=== PATIENT | female | born 1995 | race Two or more races ===

== ENCOUNTER 2019-11-19 13:10 | Outpatient (CLI) | payer OTHER, SELFPAY ==
[2019-11-19 13:52] LABS: Basophils Percent Auto 0.2 % (0.2-1.2); Eosinophils Absolute Auto 0.1 K/mm3 (0-0.3); Eosinophils Percent Auto 1.1 % (0-4.4); Hematocrit 35.5 % (37.0-47.0); Hemoglobin 11.2 g/dL (12.0-15.0); Immature Granulocyte Absolute 0.05 K/mm3 (0.00-0.031); Immature Granulocyte Percent A 0.8 % (0-0.5); Lymphocytes Percent Auto 19.5 % (18.3-44.2); Mean Corpuscular HGB Conc 31.5 g/dl (32-36); Mean Corpuscular Hemoglobin 25.9 pg (26-34); Mean Corpuscular Volume 82.2 fl (80-100); Mean Platelet Volume 12.8 fl (7.4-10.4); Monocytes Absolute Auto 0.5 K/mm3 (0.1-0.6); Monocytes Percent Auto 7.6 % (2.6-8.5); Neutrophils Absolute Auto 4.4 K/mm3 (1.3-6.7); Neutrophils Percent Auto 70.8 % (45.5-73.1); Platelet Count Result 148 k/mm3 (150-375); Red Blood Count 4.32 M/mm3 (4.2-5.4); Red Cell Distribution Width 14.8 % (11.5-14.5); White Blood Count 6.2 K/mm3 (4.5-10.0)
[2019-11-19 14:45] LABS: HIV 1/2 Ab P24 Ag Result Negative (Negative)
[2019-11-20 07:30] LABS: Rapid Plasma Reagin Non-Reactive (NonReactive)
== END 2019-11-19 13:11 | disposition home or self-care (01) ==
PROVIDERS: PCP Obstetrics & Gynecology; Visit Provider Obstetrics & Gynecology
DX: Z34.90 Encounter for supervision of normal pregnancy, unspecified, unspecified trimester (principal)
CPT/HCPCS: 36415; 85025; 85055; 86592; 86703; G0432

== ENCOUNTER 2019-11-23 12:44 | Outpatient (CLI) | payer OTHER, SELFPAY ==
--- NOTE | ~2019-11-23 | US_ITS ---
EXAMINATION: US OB follow up DATE: 11/23/2019 13:32 INDICATION: Large for gestational dates. TECHNIQUE: Real-transabdominal obstetric ultrasound. FINDINGS: No prior studies for comparison. There is a single living fetus in vertex presentation. The placenta is anterior/fundal without place nta previa. cardiac activity and movement is noted with a heart rate of 147 beats per minute. T he amniotic fluid volume is subjectively normal. The following biometric data were obtained: BPD: 94mm corresponds to gestational age 38 weeks 3 days. Head circumference: 354mm corresponds to gestational age 41 weeks 3 days. Abdominal circumference: 360mm corresponds to gestational age 40 weeks 0 days. Femur length: 77mm corresponds to gestational age 39 weeks 1 days. Estimated weight: 3882grams +/- 582grams.] IMPRESSION: 1. Single living intrauterine in vertex presentation with an estimated gestational age of 39 weeks 5 days by current ultrasound. 2. Normal placenta. Reviewed, dictated and finalized at location A. IMPRESSION: 1. Single living intrauterine in vertex presentation with an estimat ed gestational age of 39 weeks 5 days by current ultrasound. 2. Normal placenta.
== END 2019-11-23 12:45 | disposition home or self-care (01) ==
LOC: ANHIMG 12:48
PROVIDERS: Visit Provider Obstetrics & Gynecology
DX: Z34.93 Encounter for supervision of normal pregnancy, unspecified, third trimester (principal); Z3A.39 39 weeks gestation of pregnancy
CPT/HCPCS: 76816

== ENCOUNTER 2019-11-26 11:32 | Outpatient (RCR) | payer OTHER, SELFPAY ==
--- NOTE | ~2019-11-26 | US_ITS ---
EXAMINATION: US OB BPP wo non-stress DATE: 11/26/2019 12:34 INDICATION: Decreased movements during third trimester of TECHNIQUE: Real-time pelvic ultrasound was performed. The interpreting radiologist was not present fo r the study. COMPARISON: None. FINDINGS: There is a single living fetus in vertex presentation. The placenta is anterior. heart rate is 173 beats per minute (bpm). Biophysical profile performed by the technologist: breathing (30 sec sustained breathing in 30 minutes): 2 out of 2 movement (3 gross body movements in 30 minutes): 2 out of 2 tone (one episode of wueltii-sabwvamtj-gppvurf limb movement): 2 out of 2 Amniotic fluid pocket (2 cm): 2 out of 2 Total score: 8 out of 8 IMPRESSION: 1. Single living fetus in vertex presentation with heart rate of 173 bpm which is tachycardic f or estimated gestational age. 2. Biophysical profile 8 out of 8. Reviewed, dictated and finalized at location A. IMPRESSION: 1. Single living fetus in vertex presentation with heart rate of 173 bpm which is tachycardic for estimated gestational age. 2. Biophysical profile 8 out of 8.
[2019-11-26 11:47] VITALS: BP 121/53; PULSE 87
[2019-11-26 12:39] VITALS: BP 121/53; PULSE 84
== END 2019-12-10 08:59 | disposition home or self-care (01) ==
LOC: ANHOBOP 11:32
PROVIDERS: Visit Provider Obstetrics & Gynecology
DX: O36.8130 Decreased fetal movements, third trimester, not applicable or unspecified (principal); Z3A.38 38 weeks gestation of pregnancy; Z23 Encounter for immunization
CPT/HCPCS: 59025; 76819; 90715; 96372

== ENCOUNTER 2019-11-27 16:05 | Outpatient (CLI) | payer OTHER, SELFPAY ==
[2019-11-27] MEDS: TETANUS,DIPHTHERIA,AC PERTUSSIS ADULT (0.5 ML) BOOSTRIX IM (16:37)
== END 2019-11-27 16:06 | disposition home or self-care (01) ==
LOC: ANHOBOP 16:13
PROVIDERS: Visit Provider Obstetrics & Gynecology
DX: Z23 Encounter for immunization (principal)
CPT/HCPCS: 90715

== ENCOUNTER 2019-12-03 11:45 | Outpatient (CLI) | payer OTHER, SELFPAY ==
--- NOTE | ~2019-12-03 | US_ITS ---
US OB limited w BPP DATE: 12/03/2019 13:44 INDICATION: Maternal hypertension TECHNIQUE: Real-time and color flow imaging and Doppler analysis COMPARISON: 11/26/2019 OBSTETRICAL EXAMINATION WITH BIOPHYSICAL PROFILE FINDINGS: Live laguerre intrauterine gestation, fetus in longitudinal lie, vertex presentation. Feta l heart rate of 132 bpm. Anterior placenta. Amniotic fluid index measures 9.15 cm, which is slightly above the 5th percentile is 7.2 cm. The 95th percentile FOSTER is 22.6 cm. BIOPHYSICAL PROFILE reported by senior health physics technician: breathin out of 2 movement: 2 out of 2 tone: 2 out of 2 Amniotic fluid pocket: 2 out of 2 Total score: 8 out of 8 IMPRESSION: Normal biophysical profile score of 8 out of 8 Reviewed, dictated and finalized at Location A. Reviewed, dictated and finalized at location A.
[2019-12-03 11:55] VITALS: BP 120/102; PULSE 93
[2019-12-03 12:01] VITALS: BP 111/60; PULSE 86
[2019-12-03 12:15] VITALS: BP 122/60; PULSE 84
[2019-12-03 12:45] VITALS: BP 120/67; PULSE 82
[2019-12-03 12:47] LABS: Basophils Percent Auto 0.2 % (0.2-1.2); Eosinophils Absolute Auto 0.1 K/mm3 (0-0.3); Hematocrit 35.2 % (37.0-47.0); Hemoglobin 11.3 g/dL (12.0-15.0); Immature Granulocyte Absolute 0.03 K/mm3 (0.00-0.031); Immature Granulocyte Percent A 0.5 % (0-0.5); Immature Platelet Fraction Pct 14.4 % (0.9-11.2); Lymphocytes Absolute Auto 1.19 K/mm3 (0.9-3.2); Mean Corpuscular HGB Conc 32.1 g/dl (32-36); Mean Corpuscular Hemoglobin 26.3 pg (26-34); Mean Corpuscular Volume 82.1 fl (80-100); Monocytes Absolute Auto 0.3 K/mm3 (0.1-0.6); Monocytes Percent Auto 5.1 % (2.6-8.5); Neutrophils Absolute Auto 4.7 K/mm3 (1.3-6.7); Neutrophils Percent Auto 74.2 % (45.5-73.1); Platelet Count Result 138 k/mm3 (150-375); Red Blood Count 4.29 M/mm3 (4.2-5.4); White Blood Count 6.3 K/mm3 (4.5-10.0)
[2019-12-03 12:56] VITALS: BP 111/60; PULSE 86
[2019-12-03 12:57] LABS: Alanine Aminotransferase 13 U/L (4-35); Albumin Level 3.2 g/dL (3.5-5.1); Alkaline Phosphatase 94 U/L (38-126); Aspartate Amino Transferase 16 U/L (14-36); Bilirubin,Total 0.2 mg/dL (0.2-1.3); Blood Urea Nitrogen 6 mg/dL (7-17); Carbon Dioxide 23 mmol/L (22-30); Chloride 105 mmol/L (98-107); Estimated Glomerular Filt Rate > 60; Glucose 97 mg/dL (65-105); Potassium 3.8 mmol/L (3.4-5.0); Sodium 135 mmol/L (137-145); Uric Acid 4.9 mg/dL (2.5-7.5)
[2019-12-03 13:00] VITALS: BP 120/67; PULSE 81
== END 2019-12-03 13:45 | disposition home or self-care (01) ==
LOC: ANHOBOP 11:49 → ANHOBPP 11:52
PROVIDERS: Visit Provider Obstetrics & Gynecology
DX: O13.9 Gestational [pregnancy-induced] hypertension without significant proteinuria, unspecified trimester (principal)
CPT/HCPCS: 36415; 59025; 76815; 76819; 80053; 84550; 85025; 85055; 99199

== ENCOUNTER 2019-12-06 20:59 | Inpatient (IN) | payer OTHER, SELFPAY ==
[2019-12-06 21:24] VITALS: BMI 56.5
--- NOTE | 2019-12-06 21:30 | LDADM ---
This patient, Jacki Bauer, was admitted to Labor/Delivery/Recovery 103 on 12/06/19 at 20:59. Plans for labor, pain management and were discussed with patient. Patient/family oriented to hospital policies and general routines including ID bracelet, bed and alarms, visiting hours, pain management, procedures, bathroom and other care routines, personal items, smoking policy, room service/diet and guest tray routines, security routines, and visiting hours. Patient/Family are encouraged to report perceived risks to care and to ask questions if they do not understand what they are told or what they should do. See OBIX for further documentation.
[2019-12-06 21:40] LABS: Basophils Percent Auto 0.2 % (0.2-1.2); Eosinophils Absolute Auto 0.1 K/mm3 (0-0.3); Eosinophils Percent Auto 1.1 % (0-4.4); Hematocrit 35.8 % (37.0-47.0); Hemoglobin 11.6 g/dL (12.0-15.0); Immature Granulocyte Absolute 0.03 K/mm3 (0.00-0.031); Immature Granulocyte Percent A 0.4 % (0-0.5); Immature Platelet Fraction Pct 12.5 % (0.9-11.2); Lymphocytes Absolute Auto 1.72 K/mm3 (0.9-3.2); Lymphocytes Percent Auto 20.9 % (18.3-44.2); Mean Corpuscular HGB Conc 32.4 g/dl (32-36); Mean Corpuscular Hemoglobin 26.5 pg (26-34); Mean Corpuscular Volume 81.7 fl (80-100); Mean Platelet Volume 13.4 fl (7.4-10.4); Monocytes Absolute Auto 0.5 K/mm3 (0.1-0.6); Monocytes Percent Auto 5.8 % (2.6-8.5); Neutrophils Absolute Auto 5.9 K/mm3 (1.3-6.7); Neutrophils Percent Auto 71.6 % (45.5-73.1); Platelet Count Result 163 k/mm3 (150-375); Red Blood Count 4.38 M/mm3 (4.2-5.4); Red Cell Distribution Width 14.6 % (11.5-14.5); White Blood Count 8.2 K/mm3 (4.5-10.0)
[2019-12-06 21:43] VITALS: TEMP 37.1
[2019-12-06 21:46] VITALS: BP 123/75; PULSE 89
[2019-12-06 22:01] VITALS: BP 131/63; PULSE 93
[2019-12-06] MEDS: DINOPROSTONE 10 MG VAG INSERT VAGINAL (22:19)
[2019-12-06 22:33] VITALS: BP 128/43; PULSE 94
[2019-12-06 22:41] LABS: Amphetamine Screen Urine Negative (Negative); Barbiturate Screen Urine Negative (Negative); Benzodiazepines Screen Urine Negative (Negative); Cannabinoid Screen Urine Positive (Negative); Cocaine Screen Urine Negative (Negative); Methadone Screen Urine Negative (Negative); Opiate Screen Urine Negative (Negative); Phencyclidine Screen Urine Negative (Negative)
[2019-12-06 23:02] VITALS: BP 136/70; PULSE 82
[2019-12-06 23:32] VITALS: BP 131/79; PULSE 92
[2019-12-07] VITALS (29 sets, daily range): BP systolic 102–150; BP diastolic 54–90; PULSE 68–95; TEMP 36.6–37.4
[2019-12-07 07:19] LABS: Rapid Plasma Reagin Non-Reactive (NonReactive)
[2019-12-07] MEDS: OXYTOCIN 30 UNITS/NS 500 ML 30 UNITS/500 ML BAG 6 UNITS IV CONT (11:17)
[2019-12-07] MEDS: LACTATED RINGERS 1,000 ML 125 ML IV CONT (11:17)
[2019-12-07 12:04] LABS: Hematocrit 36.5 % (37.0-47.0); Hemoglobin 11.9 g/dL (12.0-15.0); Immature Platelet Fraction Pct 14.5 % (0.9-11.2); Mean Corpuscular HGB Conc 32.6 g/dl (32-36); Mean Corpuscular Hemoglobin 26.7 pg (26-34); Mean Corpuscular Volume 81.8 fl (80-100); Mean Platelet Volume 13.3 fl (7.4-10.4); Platelet Count Result 149 k/mm3 (150-375); Red Blood Count 4.46 M/mm3 (4.2-5.4); Red Cell Distribution Width 14.8 % (11.5-14.5); White Blood Count 8.6 K/mm3 (4.5-10.0)
[2019-12-07 12:14] LABS: Uric Acid 4.8 mg/dL (2.5-7.5)
[2019-12-07 12:17] LABS: Alanine Aminotransferase 14 U/L (4-35); Albumin Level 3.5 g/dL (3.5-5.1); Alkaline Phosphatase 102 U/L (38-126); Aspartate Amino Transferase 17 U/L (14-36); Bilirubin,Total 0.3 mg/dL (0.2-1.3); Blood Urea Nitrogen 6 mg/dL (7-17); Calcium 9.1 mg/dL (8.4-10.2); Carbon Dioxide 22 mmol/L (22-30); Chloride 105 mmol/L (98-107); Estimated CRCL calculation 264 ml/min; Estimated Glomerular Filt Rate > 60; Glucose 92 mg/dL (65-105); Potassium 3.8 mmol/L (3.4-5.0); Sodium 133 mmol/L (137-145)
[2019-12-07] MEDS: MISOPROSTOL 25 MCG TABLET VAGINAL ×3 (12:47→20:59)
--- NOTE | 2019-12-07 12:53 | PM.IMHP ---
H&P: HPI History of Present Illness Chief complaint: Induction Narrative: Jacki Bauer is a 24 year old female at 39 3/7 admitted for medical induction of labor. She has a history of gestational hypertension. She had to elevated blood pressures, one at 23 weeks and one on December 02. She was recommended for induction when had elevated blood pressures. Informed of risk of gestational hypertension. Her partner is in [place] and she requested to get induction on Thurs when he would be able to make it for the induction. She denies headache scotomata or RUQ pain. PNC significant for late transfer at 37 weeks. History of anxiety depression. She states it is stable being at home. Obesity. Marijuana use for the anxiety/depression. LMP 03/04/19 sure LMP EDC 12/06/19 C/W 12 week ultrasound. LABS: HIV neg, HepBsag-neg, h/h11/35, B+, ab neg, RPR NR, Rub Imm,Pap-nl, Gc/Chl-/-, Quad screen neg,one hour glucola 106. GBS neg Review of Systems Review of Systems: All systems reviewed & are unremarkable except as noted in HPI and below Constitutional: Constitutional: Reports no additional constitutional complaints and Denies headache(s) Eyes: Eyes: Denies spots in vision ENT: Reports system reviewed and no additional complaints, except as documented and Denies headache(s) Cardiovascular: Cardiovascular: Denies chest pain and Denies dyspnea Respiratory: Respiratory: Denies dyspnea Gastrointestinal: Gastrointestinal: Reports no additional gastrointestinal complaints Genitourinary: Genitourinary: Reports amenorrhea Musculoskeletal: Musculoskeletal: Reports no additional musculoskeletal complaints Integumentary/Breasts: Skin/Breast: Denies breast mass and Denies rash Neurologic: Denies headache(s) Psychiatric: Psychiatric: Reports no additional psychiatric complaints [facility] Past Medical History Medical History Anxiety Encounter for supervision of other normal , third trimester Gestational hypertension affecting first Obesity Surgical History Surgical History History of tonsillectomy Family History Family History Grandparent Diabetes mellitus Father Asthma Social History Social History Years smoked: 2 Smoking status: Former smoker Tobacco type: cigarettes Second hand tobacco smoke exposure: No Smoking end date: 11/13/18 Alcohol intake: former Substance use: current Substance use type: marijuana Spiritual care concerns: No Meds Home Medications and Allergies Home Medications Medication Instructions Recorded Confirmed Type famotidine 20 mg tablet 20 mg PO DAILY 11/19/19 12/06/19 History 72-iron 90 mg-folic acid See Rx Instructions PO PER PKG DIR 11/19/19 12/06/19 History 1 mg-DSS 50 mg-dha 300 mg oral pack Allergies Allergy/AdvReac Type Severity Reaction Status Date / Time No Known Allergies Allergy Verified 12/03/19 10:47 Vital Signs Vital Signs - 24 hr 12/06/19 21:43 12/06/19 21:46 12/06/19 22:01 Temperature 98.7 F Pulse Rate 89 93 Blood Pressure 123/75 131/63 12/06/19 22:33 12/06/19 23:02 12/06/19 23:32 Temperature Pulse Rate 94 82 92 Blood Pressure 128/43 L 136/70 131/79 12/07/19 00:02 12/07/19 00:31 12/07/19 05:01 Temperature 98.4 F Pulse Rate 95 88 81 Blood Pressure 122/64 119/62 122/73 12/07/19 08:37 12/07/19 08:39 12/07/19 11:21 Temperature 99.4 F Pulse Rate 81 79 Blood Pressure 143/90 H 141/73 H 12/07/19 11:32 12/07/19 11:47 12/07/19 12:02 Temperature Pulse Rate 78 82 81 Blood Pressure 141/84 H 137/74 148/88 H 12/07/19 12:17 12/07/19 12:33 12/07/19 12:47 Temperature Pulse Rate 79 76 83 Blood Pressure 135/65 150/87 H 140/80 Exam Const: General: no acute distress Eyes:
--- NOTE | 2019-12-07 13:00 | PM.OBPNVD ---
OB - PN: Subj Subjective Date/time seen: 12/07/19 1140 FHt 135, Cat 1, irreg ctx Cervix ft/th, blt Will start Cytotoec 25ug q 4hour. OB - PN: Obj Data Labs CBC & Chem 7: 12/07/19 11:54 12/07/19 11:54 Labs: Laboratory Results - last 24 hr 12/06/19 12/06/19 12/06/19 21:33 21:33 21:33 WBC 8.2 RBC 4.38 Hgb 11.6 L Hct 35.8 L MCV 81.7 MCH 26.5 MCHC 32.4 RDW 14.6 H Plt Count 163 MPV 13.4 H Immature Gran % (Auto) 0.4 Neut % (Auto) 71.6 Lymph % (Auto) 20.9 [place] % (Auto) 5.8 Eos % (Auto) 1.1 Baso % (Auto) 0.2 Lymph # (Auto) 1.72 [place] # (Auto) 0.5 Eos # (Auto) 0.1 Baso # (Auto) 0.0 Abs Immat Gran (auto) 0.03 Absolute Neuts (auto) 5.9 Absolute Nucleated RBC 0.0 Nucleated RBC % 0.0 % Immature Plt Fraction 12.5 H Sodium Potassium Chloride Carbon Dioxide BUN Creatinine Estim Creat Clear Calc Estimated GFR Glucose Uric Acid Calcium Total Bilirubin AST ALT Alkaline Phosphatase Total Protein Albumin Urine Opiates Screen Urine Methadone Screen Ur Barbiturates Screen Ur Phencyclidine Scrn Ur Amphetamine Screen U Benzodiazepines Scrn Urine Cocaine Screen U Cannabinoids Screen RPR Non-reactive Blood Type B Positive Antibody Screen Negative 12/06/19 12/07/19 12/07/19 22:08 11:54 11:54 WBC 8.6 RBC 4.46 Hgb 11.9 L Hct 36.5 L MCV 81.8 MCH 26.7 MCHC 32.6 RDW 14.8 H Plt Count 149 L MPV 13.3 H Immature Gran % (Auto) Neut % (Auto) Lymph % (Auto) [place] % (Auto) Eos % (Auto) Baso % (Auto) Lymph # (Auto) [place] # (Auto) Eos # (Auto) Baso # (Auto) Abs Immat Gran (auto) Absolute Neuts (auto) Absolute Nucleated RBC Nucleated RBC % % Immature Plt Fraction 14.5 H Sodium 133 L Potassium 3.8 Chloride 105 Carbon Dioxide 22 BUN 6 L Creatinine 0.40 L Estim Creat Clear Calc 264 Estimated GFR > 60 Glucose 92 Uric Acid Calcium 9.1 Total Bilirubin 0.3 AST 17 ALT 14 Alkaline Phosphatase 102 Total Protein 7.0 Albumin 3.5 Urine Opiates Screen Negative Urine Methadone Screen Negative Ur Barbiturates Screen Negative Ur Phencyclidine Scrn Negative Ur Amphetamine Screen Negative U Benzodiazepines Scrn Negative Urine Cocaine Screen Negative U Cannabinoids Screen Positive A RPR Blood Type Antibody Screen 12/07/19 11:54 WBC RBC Hgb Hct MCV MCH MCHC RDW Plt Count MPV Immature Gran % (Auto) Neut % (Auto) Lymph % (Auto) [place] % (Auto) Eos % (Auto) Baso % (Auto) Lymph # (Auto) [place] # (Auto) Eos # (Auto) Baso # (Auto) Abs Immat Gran (auto) Absolute Neuts (auto) Absolute Nucleated RBC Nucleated RBC % % Immature Plt Fraction Sodium Potassium Chloride Carbon Dioxide BUN Creatinine Estim Creat Clear Calc Estimated GFR Glucose Uric Acid 4.8 Calcium Total Bilirubin AST ALT Alkaline Phosphatase Total Protein Albumin Urine Opiates Screen Urine Methadone Screen Ur Barbiturates Screen Ur Phencyclidine Scrn Ur Amphetamine Screen U Benzodiazepines Scrn Urine Cocaine Screen U Cannabinoids Screen RPR Blood Type Antibody Screen OB - PN A/P Time Spent With Patient Time: Total time spent is greater than 50% in coordination of care (as documented) at patient's floor/unit and/or counseling patient:
--- NOTE | 2019-12-07 18:09 | WPDANESEPP ---
Anes - Eval Pre Procedure Procedure: labor epidural Date/Time: 12/07/19 18:09 Surgeon: Vijay Preop Diagnosis: Abd pain with contractions Pre Op Diagnosis: Induction Patient Data Age: 24 Gender: F Height: 5 ft 5 in Weight: 154 kg Last Vital Signs Temp 98 F 12/07/19 16:46 Pulse 68 12/07/19 18:01 BP 125/69 12/07/19 18:01 Allergies Allergy/AdvReac Type Severity Reaction Status Date / Time No Known Allergies Allergy Verified 12/03/19 10:47 Home Medications Medication Instructions Recorded Confirmed Type famotidine 20 mg tablet 20 mg PO DAILY 11/19/19 12/06/19 History 72-iron 90 mg-folic acid See Rx Instructions PO PER PKG DIR 11/19/19 12/06/19 History 1 mg-DSS 50 mg-dha 300 mg oral pack Laboratory Tests 12/06/19 12/06/19 12/06/19 21:33 21:33 21:33 WBC 8.2 K/mm3 K/mm3 (4.5-10.0) RBC 4.38 M/mm3 M/mm3 (4.2-5.4) Hgb 11.6 g/dL L g/dL (12.0-15.0) Hct 35.8 % L % (37.0-47.0) MCV 81.7 fl fl (80-100) MCH 26.5 pg pg (26-34) MCHC 32.4 g/dl g/dl (32-36) RDW 14.6 % H % (11.5-14.5) Plt Count 163 k/mm3 k/mm3 (150-375) MPV 13.4 fl H fl (7.4-10.4) Immature Gran % (Auto) 0.4 % % (0-0.5) Neut % (Auto) 71.6 % % (45.5-73.1) Lymph % (Auto) 20.9 % % (18.3-44.2) Creek % (Auto) 5.8 % % (2.6-8.5) Eos % (Auto) 1.1 % % (0-4.4) Baso % (Auto) 0.2 % % (0.2-1.2) Lymph # (Auto) 1.72 K/mm3 K/mm3 (0.9-3.2) Creek # (Auto) 0.5 K/mm3 K/mm3 (0.1-0.6) Eos # (Auto) 0.1 K/mm3 K/mm3 (0-0.3) Baso # (Auto) 0.0 K/mm3 K/mm3 (0.0-0.1) Abs Immat Gran (auto) 0.03 K/mm3 K/mm3 (0.00-0.031) Absolute Neuts (auto) 5.9 K/mm3 K/mm3 (1.3-6.7) Absolute Nucleated RBC 0.0 K/mm3 K/mm3 (0.0-0.012) Nucleated RBC % 0.0 % % (0.0-0.2) % Immature Plt Fraction 12.5 % H % (0.9-11.2) Sodium Potassium Chloride Carbon Dioxide BUN Creatinine Estim Creat Clear Calc Estimated GFR Glucose Uric Acid Calcium Total Bilirubin AST ALT Alkaline Phosphatase Total Protein Albumin Urine Opiates Screen Urine Methadone Screen Ur Barbiturates Screen Ur Phencyclidine Scrn Ur Amphetamine Screen U Benzodiazepines Scrn Urine Cocaine Screen U Cannabinoids Screen RPR Non-reactive (NonReactive) Blood Type B Positive Antibody Screen Negative 12/06/19 12/07/19 12/07/19 22:08 11:54 11:54 WBC 8.6 K/mm3 K/mm3 (4.5-10.0) RBC 4.46 M/mm3 M/mm3 (4.2-5.4) Hgb 11.9 g/dL L g/dL (12.0-15.0) Hct 36.5 % L % (37.0-47.0) MCV 81.8 fl fl (80-100) MCH 26.7 pg pg (26-34) MCHC 32.6 g/dl g/dl (32-36) RDW 14.8 % H % (11.5-14.5) Plt Count 149 k/mm3 L k/mm3 (150-375) MPV 13.3 fl H fl (7.4-10.4) Immature Gran % (Auto) Neut % (Auto) Lymph % (Auto) Creek % (Auto) Eos % (Auto) Baso % (Auto) Lymph # (Auto) [place] # (Auto) Eos # (Auto) Baso # (Auto) Abs Immat Gran (auto) Absolute Neuts (auto) Absolute Nucleated RBC Nucleated RBC % % Immature Plt Fraction 14.5 % H % (0.9-11.2) Sodium 133 mmol/L L mmol/L (137-145) Potassium 3.8 mmol/L mmol/L (3.4-5.0) Chloride 105 mmol/L mmol/L (98-107) Carbon Dioxide 22 mmol/L mmol/L (22-30)
[2019-12-08] VITALS (169 sets, daily range): BP systolic 97–152; BP diastolic 36–109; PULSE 64–111; RESP 16–20; TEMP 36.3–37.5; O2SAT 79–100
[2019-12-08] MEDS: MISOPROSTOL 25 MCG TABLET VAGINAL (00:53)
[2019-12-08] MEDS: ONDANSETRON INJ 4 MG/2 ML VIAL IV PUSH (01:54)
[2019-12-08] MEDS: LACTATED RINGERS 1,000 ML 125 ML IV CONT (04:56)
[2019-12-08] MEDS: MISOPROSTOL 200 MCG TABLET 1000 MCG XX (13:30)
--- NOTE | 2019-12-08 13:47 | PM.OBPRVD ---
OB - Delivery Note Procedure Delivery date: 12/08/19 Procedure: Patient is 24-year-old now who was admitted to L&D on the evening of 12/06/19 at 39w6d for scheduled induction of labor secondary to gestational hypertension. Induction of labor was began with Cervidil. Initial cervical exam was closed. Cervidil remained in place for 12 hours. When Cervidil was removed, patient's cervix was fingertip dilated. Patient received Cytotec x4 doses vaginally after which cervix began to change. She was noted to be 4 cm dilated on the morning of 12/08/19. Pitocin was started for labor augmentation. Spontaneous rupture of membranes occurred at 3:20 a.m. Clear fluid noted. Patient continued to make cervical change. Patient became uncomfortable and requested an epidural for pain management which was placed without difficulty. Due to patient's body habitus, external monitoring and uterine activity was difficult to monitor externally. An FSE and IUPC were placed for enhanced monitoring. Patient continued to make progressive cervical change and was found to be fully dilated at 12:30 p.m. She was encouraged to push and found be pushing well. Patient was prepped and draped for delivery. At 1:16 p.m., head was delivered atraumatically and without difficulty in JULIEN presentation. Occiput restituted to maternal left side. A nuchal cord x1 was noted and easily reduced. With subsequent push, the 's neck, shoulders, and rest of body were delivered without difficulty. Infant was crying spontaneously. 's nose and mouth were suctioned with bulb suction. FSE was removed and infant was placed on maternal abdomen for care was assumed by waiting nursing staff. Delayed cord clamping was performed for approximately 90 seconds. Cord was clamped and cut. Cord blood was obtained. On inspection, a 1st degree perineal laceration was noted as well as a few periurethral and vaginal abrasions. The perineal laceration was repaired with 2-0 in 3-0 Vicryl in the usual fashion. The abrasions were noted to be hemostatic and did not require repair. The placenta was delivered spontaneously and intact. Uterine fundus was noted to be mildly boggy. Fundus became firm with vigorous bimanual massage and increase in IV Pitocin. Cytotec 1000mcg was administered rectally. Bleeding subsided. The patient was cleansed and dried. The was a live-born male infant, Apgars 9 and 9, weighing 8 lb 10 oz. Both mother and baby doing well at end of delivery. Routine care to continue. events: Induced HTN and Labor Induction Induction method: per misoprostol protocol and other (cervidil) Delivery augmentation: pitocin Delivery monitor: external FHT, external uterine, internal FHT and internal uterine Route of delivery: Laceration description: Perineal - 1st Degree Delivery repair: vicryl Specimen: Yes (cord blood) Estimated blood loss (mL): 700 Anesthesia type: Epidural Disposition: floor Complications: No immediate complications Baby Date of : 12/08/19 Time of : 13:16 Weeks of gestation at delivery: 39 Infant gender: Male Weight (pounds): 8 Weight (ounces): 10 presentation: vertex position: Left Occiput Anterior Placenta delivery description: Spontaneous cord vessel description: 3 Vessels and Nuchal Cord (x1) score one minute: 9 score five minutes: 9
[2019-12-08] MEDS: WITCH HAZEL 40 PADS 1 PAD (14:02)
[2019-12-08] MEDS: OXYTOCIN 30 UNITS/NS 500 ML 30 UNITS/500 ML BAG 125 UNITS IV CONT (14:03)
[2019-12-08] MEDS: BENZOCAINE 20% AER SPR (*SP) 56 GM CAN 1 SPRAY (14:03)
[2019-12-08] MEDS: IBUPROFEN 600 MG TABLET PO (15:36)
[2019-12-08] MEDS: BENZOCAINE 20% AER SPR (*SP) 56 GM CAN 1 SPRAY TOPICAL (15:37)
[2019-12-08] MEDS: WITCH HAZEL 40 PADS 1 PAD TOPICAL (15:37)
[2019-12-08] MEDS: ACETAMINOPHEN 325 MG TABLET 650 MG PO (16:44)
--- NOTE | 2019-12-08 17:10 | PC.NURSE ---
Patient transferred to post room #283 via wheelchair. Support person present. Oriented to unit, room, information board, rooming in, admission packet and security measures. Patient verbalizes understanding.
[2019-12-09] MEDS: IBUPROFEN 600 MG TABLET PO ×2 (01:43→07:58)
[2019-12-09 05:25] LABS: Hematocrit 31.1 % (37.0-47.0); Hemoglobin 10.1 g/dL (12.0-15.0)
[2019-12-09] MEDS: MULTIVIT/MIN/PREN/FOL AC/IRON TABLET 1 TAB PO (07:58)
[2019-12-09] MEDS: LANOLIN (LANSINOH) 7.5 GM CREAM 1 APPLIC TOPICAL (07:59)
[2019-12-09 08:45] VITALS: BP 114/64; PULSE 72; RESP 20; TEMP 36.6; O2SAT 98
--- NOTE | 2019-12-09 09:33 | WPDANLDPN2 ---
Anes-Prog Note L&D Date/Time: 12/09/19 09:33 Comfortable throughout: labor and delivery Neuraxial method: epidural Epidural/Spinal procedure site: clean & non-tender Neuro status: Neuro function grossly intact. Cardiovascular status: normal Respiratory status: normal Airway patency: baseline Mental status: baseline Post-Op hydration status: normal Vital Signs: Last Vital Signs Temp 99.5 F 12/08/19 19:10 Pulse 75 12/08/19 19:10 Resp 16 12/08/19 19:10 BP 120/67 12/08/19 19:10 Pulse Ox 98 12/08/19 19:10 Patient feedback: Patient satisfied with anesthetic care.
--- NOTE | 2019-12-09 10:36 | PM.OBPNVD ---
OB - PN: Subj Subjective Date/time seen: 12/09/19 10:36 Doing well. Minimal pain. Denies any headache, chest pain, SOB, N/V, visual disturbances, or RUQ tenderness. Minimal lochia. Ambulating well. OB - PN: Obj Data Labs CBC & Chem 7: 12/09/19 05:18 12/07/19 11:54 Labs: Laboratory Results - last 24 hr 12/09/19 05:18 Hgb 10.1 L Hct 31.1 L OB - PN A/P Assessment and Plan (1) Normal spontaneous vaginal delivery: Code(s): O80 - Encounter for full-term uncomplicated delivery Status: Acute Assessment and Plan: Continue routine care Pt requesting PPD#1 discharge, which is reasonable as patient is stable and if baby cleared Emergency precautions reviewed f/u in office in 1 week for BP check Time Spent With Patient Time: Total time spent is greater than 50% in coordination of care (as documented) at patient's floor/unit and/or counseling patient: Exam Const: General: comfortable and no acute distress GI: GI Palp: Yes Soft to palpation and No Tenderness to palpation present (GI) Extrem: Right lower extremity: no edema Left lower extremity: no edema
--- NOTE | 2019-12-09 10:41 | P.DS_ITS ---
DS: Diagnosis Admitting Diagnosis Admitting Diagnosis: Encounter for full-term uncomplicated delivery Gestational hypertension OB - DS: Summary OB Procedures : None OB Procedures Intrapartum: Spontaneous Vag Delivery OB Procedures: : None Time Spent with Patient Time attestation: Total time spent providing and/or coordinating discharge services: DS: Data Data Completed and Pending Labs on day of discharge: Labs from last 24 hours 12/09/19 05:18 Hgb 10.1 L Hct 31.1 L Discharge Plan Discharge Attending physician on discharge: Carmen Egan Discharging Clinician: Carmen Egan Anticipated Discharge Date/Time: 12/09/19 10:42 Patient Disposition: Home, Self-Care Activity: as tolerated and pelvic rest Diet: as tolerated and regular Discharge Instructions: Call office ([phone]) to schedule a blood pressure check in 1 week and a visit in 4-6 weeks. You may take Ibuprofen 600mg every 6 hours as needed for pain. Pain medication may make you constipated. It may be helpful to take an ove [id number] stool softener, such as Colace and/or Senokot, along with the pain medication to help lessen constipation. Call office or go to ED for pain not controlled with medication, headache, chest pain, shortness of breath, fever, chills, persistent nausea or vomiting, severe abdominal pain, heavy vaginal bleeding >2 pads/hour, foul vaginal discharge or odor, or problems with your breasts. Patient Instructions: Antibiotic Form Stand Alone Forms: General Discharge Information Follow-up/Referrals: Carmen Egan MD [Physician] - Discharge Medications: Continued famotidine 20 mg tablet 20 mg PO DAILY RF: 0 CitraNatal 90 DHA (algal oil) 90 mg iron-1 mg -50 mg-300 mg combo pack See Rx Instructions PO PER PKG DIR RF: 0 Date of admission: 12/06/19 20:59 Primary Care Provider: UNKNOWN,DOCTOR Admitting Provider: Efra Linares Attending physician on admission: Efra Linares Condition: Stable
--- NOTE | 2019-12-09 11:20 | PC.NURSE ---
Patient viewed the discharge video Mother & Baby Care, The First Two Weeks . Patient was given the opportunity and encouraged to ask questions. Patient verbalized understanding of information shared and has been given the mother/baby guide for home reference.
--- NOTE | 2019-12-09 13:39 | PCCCNOTE ---
Addendum entered by Bruna De Leon 12/09/19 15:18: 1500: [facility] states that they will just take report as information. There will be no investigation on pt. Her intake ID is [id number]. Original Note: Per Care Coordination. Spoke with pt. this afternoon to discuss discharge planning. Pt. tested positive upon admission for Marijuana in her Urine. Pt. admits to using Marijuana throughout her to assist with the nausea associated with being . Pt. also states that she was using Marijuana before she was to assist with her anxiety. Pt. states she will not use any Marijuana now that the baby has been born. The baby's urine has not been tested and his meconium is still pending. Baby is having no withdrawal symptoms. This is the pt.'s first child. Pt. moved to [place] six weeks ago from [place], she states she moved to [place] to be closer to her family. The babies father is still in [place] and will not be moving to [place] for a couple months. Until then, pt. and baby will be living with the pt.'s grandma and her aunt. Pt. states that her family is supportive and that she has everything she needs for the baby at home. She has brought the babies car seat to the hospital for the RN to examine. Pt. states that she has been breast feeding the baby during hospitalization and will continue to do so at home. She is not current with [facility] but has been given information regarding WIC and other resources. Pt. is aware that Care Coordination has submitted a report regarding her Marijuana use to [facility]. She has no questions or concerns regarding the report. At this time [facility] has taken the information, reference number [id number]. Pt denies any discharge needs at this time and has no concerns returning home with baby. No further need for Care Coordination services at this time.
[2019-12-12 10:44] VITALS: BP 120/79; PULSE 84; RESP 20; TEMP 36.8; O2SAT 100
== END 2019-12-09 15:16 | disposition home or self-care (01) | DRG 807 ==
LOC: ANHLDR 21:12 → ANHOB2 12-09 10:43 → ANHLDR 12-11 12:39 → ANHOB2 12-11 12:39
PROVIDERS: Admitting Provider Obstetrics & Gynecology; Visit Provider Student in an Organized Health Care Education/Training Program
DX: O13.4 Gestational [pregnancy-induced] hypertension without significant proteinuria, complicating childbirth (principal); Z37.0 Single live birth; Z3A.39 39 weeks gestation of pregnancy; O99.324 Drug use complicating childbirth; O70.0 First degree perineal laceration during delivery; O69.81X0 Labor and delivery complicated by cord around neck, without compression, not applicable or unspecified; O99.214 Obesity complicating childbirth; F12.90 Cannabis use, unspecified, uncomplicated; O99.344 Other mental disorders complicating childbirth; F41.8 Other specified anxiety disorders; E66.01 Morbid (severe) obesity due to excess calories; Z87.891 Personal history of nicotine dependence
CPT/HCPCS: 36415; 80053; 80307; 84112; 84550; 85014; 85018; 85025; 85027; 85055; 86592; 86850; 86900; 86901; 88307; A9270; J2405; J2590; J3010; J7120

== ENCOUNTER 2020-03-03 11:41 | Outpatient (CLI) | payer OTHER, SELFPAY ==
[2020-03-03 12:55] LABS: Beta HCG Quantitative < 2.39 mIU/ML
== END 2020-03-03 11:42 | disposition home or self-care (01) ==
PROVIDERS: Visit Provider Obstetrics & Gynecology
DX: Z30.017 Encounter for initial prescription of implantable subdermal contraceptive (principal)
CPT/HCPCS: 36415; 84702

== ENCOUNTER → 2023-08-27 09:49 | Outpatient (CLI) | payer OTHER, SELFPAY ==
--- NOTE | ~2023-08-27 | US_ITS ---
US OB /maternal detail DATE: 08/27/2023 10:28 INDICATION: anatomy screening TECHNIQUE: Real-time imaging and Doppler analysis COMPARISON: None FINDINGS: Live laguerre intrauterine gestation, fetus in longitudinal lie, vertex presentation with heart rate of 140 bpm. Posterior placenta, lower margin 5 cm above the internal os. Cervix measures 3.5 cm length. Subjectively normal amount of amniotic fluid. Borderline prominence of the AP dimension of the right renal pelvis. Otherwise the anatomy scre en is unremarkable, with normal lateral ventricles, choroid plexus, cerebellum and nuchal fold, upper lip and spine. 4 chamber heart. The diaphragm is intact. Fluid is demonstrated in the fe ede stomach and urinary bladder. Three-vessel umbilical cord with normal insertion at abdominal wall. The extremities are present. Biparietal diameter 4.64 cm; 20 weeks 0 days Head circumference 17.06 cm; 19 weeks 5 days Abdominal circumference 14.94 cm; 20 weeks 1 day Femur length 3.23 cm; 20 weeks 0 days Composite age by Hadlock formula is 20 weeks +/- 1 week 3 days; MELBA: 01/14/2024, compared to 01/12/2024 b y LMP. Estimated weight is 331 +/- 50 g. Estimated weight-GP: 34.0% Head circumference/abdominal oral surgery technician was 1.14, within normal range of 1.08-1.25 Femur length/head circumference 18.91, within normal range of 16.80-19.80 IMPRESSION: Estimated gestational age is 20 weeks +/- 1 week 3 days with MELBA of 01/14/2024 Borderline prominence of the right renal pelvis; recommend follow-up obstetrical ultrasound imaging Otherwise normal anatomy screen Reviewed, dictated and finalized at [facility] Reviewed, dictated and finalized at [facility] IMPRESSION: Estimated gestational age is 20 weeks +/- 1 week 3 days with MELBA of 01/14/2024 Borderline prominence of the right renal pelvis; recommend follow-up obstetrica l ultrasound imaging Otherwise normal anatomy screen
== END ==
PROVIDERS: PCP Obstetrics & Gynecology; Visit Provider Obstetrics & Gynecology
DX: Z36.3 Encounter for antenatal screening for malformations (principal); Z3A.20 20 weeks gestation of pregnancy
CPT/HCPCS: 76805

== ENCOUNTER 2024-01-19 04:51 | Inpatient (IN) | payer OTHER, SELFPAY ==
[2024-01-19] VITALS (66 sets, daily range): BP systolic 108–167; BP diastolic 48–146; PULSE 61–154; RESP 16–18; TEMP 36.4–37.7; O2SAT 81–100; BMI 62.7
[2024-01-19] MEDS: OXYTOCIN 30 UNITS/NS 500 ML 30 UNITS/500 ML BAG IV CONT (05:32)
[2024-01-19] MEDS: LACTATED RINGERS 1,000 ML 125 ML IV CONT ×2 (05:33→07:50)
[2024-01-19 05:36] LABS: Basophils Percent Auto 0.3 % (0.2-1.2); Eosinophils Absolute Auto 0.1 K/mm3 (0-0.3); Eosinophils Percent Auto 1.4 % (0-4.4); Hematocrit 33.3 % (37.0-47.0); Hemoglobin 10.2 g/dL (12.0-15.0); Immature Granulocyte Absolute 0.03 K/mm3 (0.00-0.031); Immature Granulocyte Percent A 0.5 % (0-0.5); Immature Platelet Fraction Pct 18.5 % (0.9-11.2); Lymphocytes Percent Auto 24.6 % (18.3-44.2); Mean Corpuscular HGB Conc 30.6 g/dl (32-36); Mean Corpuscular Hemoglobin 24.7 pg (26-34); Mean Corpuscular Volume 80.6 fl (80-100); Mean Platelet Volume 13.6 fl (7.4-10.4); Monocytes Absolute Auto 0.4 K/mm3 (0.1-0.6); Monocytes Percent Auto 5.8 % (2.6-8.5); Neutrophils Absolute Auto 4.4 K/mm3 (1.3-6.7); Neutrophils Percent Auto 67.4 % (45.5-73.1); Platelet Count Result 156 k/mm3 (150-375); Red Blood Count 4.13 M/mm3 (4.2-5.4); Red Cell Distribution Width 16.7 % (11.5-14.5); White Blood Count 6.5 K/mm3 (4.5-10.0)
[2024-01-19 06:24] LABS: HIV 1/2 Ab P24 Ag Result Negative (Negative)
--- NOTE | 2024-01-19 06:37 | PM.IMHP ---
H&P: HPI History of Present Illness Date/Time: 01/19/24 06:37 Chief Complaint: postdates Narrative: 28-year-old 2 para were with an EDC of 01/12/2024 for by early ultrasound presents at 41-,1/7 weeks gestation for induction of labor. has been uncomplicated she removed her obesity. She is negative for group B strep her cervix is favorable PMFSH Past Medical History Medical History Anxiety Obesity Vaginal delivery x1 Surgical History Surgical History History of tonsillectomy Family History Family History Grandparent Diabetes mellitus Father Asthma Social History Social History Years smoked: 2 Smoking status: Never smoker Tobacco type: cigarettes Second hand tobacco smoke exposure: No Smoking end date: 11/13/18 Alcohol intake: former Substance use: current Substance use type: marijuana Do You Feel Safe in your Home?: Yes Lack of Transportation: No Lack of Food: Never True Current Housing: I Have Housing Concerned About Future Housing: No Difficulty Paying Gas/Electric Bills: No Difficulty Paying for Meds: No Currently Unemployed: No Education: Master's Degree or Higher Difficulty w/ Childcare or Family Care: No Living arrangements: with family Occupation/Education: occupation Gender identity (if verbalized by the patient): Female Sexual Orientation (if Verbalized by the Patient): Straight or Heterosexual Spiritual care concerns: No Meds Home Medications and Allergies Home Medications Medication Instructions Recorded Confirmed Type ferrous sulfate 325 mg (65 mg 325 mg PO DAILY 12/28/23 12/28/23 History iron) tablet vits no.126-ferrous fum 1 tablet PO DAILY 12/28/23 12/28/23 History 28 mg iron-folic acid 800 mcg tablet (Classic ) Allergies Allergy/AdvReac Type Severity Reaction Status Date / Time No Known Allergies Allergy Verified 12/28/23 12:08 Vital Signs Vital Signs - 24 hr 01/19/24 05:30 01/19/24 05:45 01/19/24 06:00 Pulse Rate 65 65 65 Blood Pressure 138/89 147/88 H 160/92 H Pulse Oximetry Oxygen Delivery 01/19/24 06:24 01/19/24 06:30 01/19/24 06:36 Pulse Rate 67 61 Blood Pressure 144/77 H 159/94 H Pulse Oximetry 100 Oxygen Delivery 01/19/24 05:41 Pulse Rate Blood Pressure Pulse Oximetry Oxygen Delivery Room Air Exam Const: General: cooperative, healthy appearing and comfortable Nutritional Appearance: obese Orientation/consciousness: oriented to person, oriented to place and oriented to time Resp: Effort & Inspection: normal respiratory effort Cardio: Rate: regular rate Rhythm: regular rhythm Heart sounds: S1 normal heart sound present and S2 normal heart sound present GI: Inspection: normal to inspection ( gravid soft uterus) : External Female Exam: normal external appearance Speculum Exam - Vagina: normal appearance of the vagina Speculum Exam - Cervix: normal appearance of the cervix ( cervix 3/75/2. AROM clear. IUPC placed. FHTs reassuring) H&P: Results Labs Labs: Short CBC 01/19/24 Range/Units 05:24 WBC 6.5 (4.5-10.0) K/mm3 Hgb 10.2 L (12.0-15.0) g/dL Hct 33.3 L (37.0-47.0) % Plt Count 156 (150-375) k/mm3 Assessment and Plan Assessment and plan (1) Post-dates : Code(s): O48.0 - Post-term Status: Acute (2) Morbid obesity with BMI of 60.0-69.9, adult: Code(s): E66.01 - Morbid (severe) obesity due to excess calories; Z68.44 - Body mass index [BMI] 60.0-69.9, adult Status: Acute Assessment and Plan: medical induction of labor. Spontaneous vaginal delivery expected. She has an epidural candidate
--- NOTE | 2024-01-19 07:23 | WPDANESEPP ---
Anes - Eval Pre Procedure Procedure: labor epidural Date/Time: 01/19/24 07:23 Surgeon: guerrero Preop Diagnosis: pain during labor Pre Op Diagnosis: IOL Patient Data Age: 28 Gender: F Height: 1.65 m Weight: 171 kg Last Vital Signs Temp 36.4 C L 01/19/24 06:30 Pulse 61 01/19/24 06:30 Resp 16 01/19/24 06:30 BP 159/94 H 01/19/24 06:30 Pulse Ox 99 01/19/24 07:21 O2 Del Method Room Air 01/19/24 05:41 Allergies Allergy/AdvReac Type Severity Reaction Status Date / Time No Known Allergies Allergy Verified 12/28/23 12:08 Home Medications Medication Instructions Recorded Confirmed Type ferrous sulfate 325 mg (65 mg 325 mg PO DAILY 12/28/23 12/28/23 History iron) tablet vits no.126-ferrous fum 1 tablet PO DAILY 12/28/23 12/28/23 History 28 mg iron-folic acid 800 mcg tablet (Classic ) Laboratory Tests 01/19/24 05:24 WBC 6.5 K/mm3 (4.5-10.0) RBC 4.13 L M/mm3 (4.2-5.4) Hgb 10.2 L g/dL (12.0-15.0) Hct 33.3 L % (37.0-47.0) MCV 80.6 fl (80-100) MCH 24.7 L pg (26-34) MCHC 30.6 L g/dl (32-36) RDW 16.7 H % (11.5-14.5) Plt Count 156 k/mm3 (150-375) MPV 13.6 H fl (7.4-10.4) Immature Gran % (Auto) 0.5 % (0-0.5) Neut % (Auto) 67.4 % (45.5-73.1) Lymph % (Auto) 24.6 % (18.3-44.2) [place] % (Auto) 5.8 % (2.6-8.5) Eos % (Auto) 1.4 % (0-4.4) Baso % (Auto) 0.3 % (0.2-1.2) Lymph # (Auto) 1.60 K/mm3 (0.9-3.2) [place] # (Auto) 0.4 K/mm3 (0.1-0.6) Eos # (Auto) 0.1 K/mm3 (0-0.3) Baso # (Auto) 0.0 K/mm3 (0.0-0.1) Abs Immat Gran (auto) 0.03 K/mm3 (0.00-0.031) Absolute Neuts (auto) 4.4 K/mm3 (1.3-6.7) Absolute Nucleated RBC 0.000 K/mm3 (0.0-0.012) Nucleated RBC % 0.0 % (0.0-0.2) % Immature Plt Fraction 18.5 H % (0.9-11.2) RPR Pending HIV 1&2 Ab/P24 Ag 4thGn Negative (Negative) Blood Type B Positive Antibody Screen Negative Patient hx anesthesia problems: none Family hx anesthesia problems: none Results Review: All pre-operative results and documents have been reviewed as part of the pre-operative evaluation. [facility] Past Medical History Medical History Anxiety Obesity Vaginal delivery x1 Surgical History Surgical History History of tonsillectomy Family History Family History Grandparent Diabetes mellitus Father Asthma Social History Social History Years smoked: 2 Smoking status: Never smoker Tobacco type: cigarettes Second hand tobacco smoke exposure: No Smoking end date: 11/13/18 Alcohol intake: former Substance use: current Substance use type: marijuana Do You Feel Safe in your Home?: Yes Lack of Transportation: No Lack of Food: Never True Current Housing: I Have Housing Concerned About Future Housing: No Difficulty Paying Gas/Electric Bills: No Difficulty Paying for Meds: No Currently Unemployed: No Education: Master's Degree or Higher Difficulty w/ Childcare or Family Care: No Living arrangements: with family Occupation/Education: occupation Gender identity (if verbalized by the patient): Female Sexual Orientation (if Verbalized by the Patient): Straight or Heterosexual Spiritual care concerns: No Exam Day of Procedure 01/19/24 07:23
--- NOTE | 2024-01-19 09:36 | P.PCNOB_ITS ---
OB - Vaginal Delivery Note Procedure Delivery date: 01/19/24 Events: Other (Postdates ) Induction method: AROM Delivery monitor: External FHT and Internal Uterine Route of delivery: Episiotomy description: None Laceration Description: None Specimen: No Quantitative Blood Loss (ml): 61 Anesthesia type: Epidural Disposition: Floor Complications: No immediate complications Narrative: patient was admitted for induction of labor she had unremarkable course with epidural anesthesia and spontaneously delivered the head the CARMINA position anterior posterior shoulder delivered spontaneous appeared cord clamped x2 and cut and the passed off the table given Apgars of 9 [id number]. Cord blood was drawn the placenta delivered intact spontaneously [place] Baby Date of : 01/19/24 Time of : 09:26 Weeks of gestation at delivery: 41 gender: Male presentation: vertex position: Right Occiput Anterior Cord Vessel Description: 3 Vessels, Nuchal Cord, Loose and Reduced score one minute: 9 score five minutes: 9
--- NOTE | 2024-01-19 09:38 | PM.DS ---
DS: Admitting Diagnosis Discharge Date 01/20/2024 Admitting Diagnosis postdates DS: Discharge Diagnosis Discharge Diagnosis (1) Post-dates : Code(s): O48.0 - Post-term Status: Acute DS: Summary Hospital Course Reason for hospitalization: patient was admitted on 01/19/2024 for induction of labor and underwent spontaneous vaginal delivery of a male infant with Apgars of 9 and 9. Hospital Course: Patient's hospital course unremarkable. She remained afebrile. She was up, voiding without difficulty, eating a ambulating, generally without complaints. Time Spent with Patient Time attestation: Total time spent providing and/or coordinating discharge services: Exam Const: General: cooperative, healthy appearing and comfortable Orientation/consciousness: oriented to person, oriented to place and oriented to time HENMT: Head: normal to inspection Resp: Effort & Inspection: normal respiratory effort Cardio: Rate: regular rate Rhythm: regular rhythm Heart sounds: S1 normal heart sound present and S2 normal heart sound present GI: Inspection: normal to inspection ( Fundus firm below the umbilicus) DS: Data Data Completed and Pending Labs on day of discharge: Labs from last 24 hours 01/19/24 05:24 WBC 6.5 RBC 4.13 L Hgb 10.2 L Hct 33.3 L MCV 80.6 MCH 24.7 L MCHC 30.6 L RDW 16.7 H Plt Count 156 MPV 13.6 H Immature Gran % (Auto) 0.5 Neut % (Auto) 67.4 Lymph % (Auto) 24.6 [place] % (Auto) 5.8 Eos % (Auto) 1.4 Baso % (Auto) 0.3 Lymph # (Auto) 1.60 [place] # (Auto) 0.4 Eos # (Auto) 0.1 Baso # (Auto) 0.0 Abs Immat Gran (auto) 0.03 Absolute Neuts (auto) 4.4 Absolute Nucleated RBC 0.000 Nucleated RBC % 0.0 % Immature Plt Fraction 18.5 H RPR Pending HIV 1&2 Ab/P24 Ag 4thGn Negative Blood Type B Positive Antibody Screen Negative Discharge Plan Discharge Attending physician on discharge: David Lyons Discharging Clinician: David Lyons Patient Disposition: Home, Self-Care Activity: may shower, no straining and pelvic rest Diet: heart healthy Wound Care Instructions: follow printed instructions Patient Instructions: Antibiotic Form Stand Alone Forms: General Discharge Information Follow-up/Referrals: David Lyons MD [Physician] - Discharge Medications: Continued ferrous sulfate 325 mg (65 mg iron) Tablet 325 mg PO DAILY Classic 28 mg iron- 800 mcg Tablet 1 tablet PO DAILY Date of admission: 01/19/24 04:51 Primary Care Provider: PHYSICIAN,HARBOR ENGINEER Admitting Provider: David Lyons Attending physician on admission: David Lyons Condition: Stable
[2024-01-19] MEDS: OXYTOCIN 30 UNITS/NS 500 ML 30 UNITS/500 ML BAG 125 UNITS IV CONT (10:20)
--- NOTE | 2024-01-19 11:51 | OBPPTRN ---
Patient transferred to post room #277 via wheelchair. Support person present. Oriented to unit, room, information board, rooming in, admission packet and security measures. Patient verbalizes understanding.
[2024-01-19 13:15] LABS: Rapid Plasma Reagin Non-Reactive (NonReactive)
--- NOTE | 2024-01-19 16:02 | PCCCNOTE ---
Care Coordination. Received high risk screening for pt. due to marijuana use during . Pt. and infant not tested during delivery. Met with pt. and FOB at bedside. Pt. and FOB also have a 4 year old at home. They don't plan to have WIC, but report aware how they will obtain if needed. Provided them a basket of baby supplies. She did not want any center resources. Pt. reports she used marijuana during due to nausea issues. No further CC needs.
[2024-01-20 05:04] VITALS: BP 131/76; PULSE 71; RESP 22; TEMP 36.9; O2SAT 100
--- NOTE | 2024-01-20 06:33 | PM.OBPNVD ---
OB - PN: Subj Subjective Date/time seen: 01/20/24 06:33 Patient comments: no complaints and pain well controlled baby status: doing well OB - PN: Obj Data Labs 01/19/24 05:24 Labs: Laboratory Results - last 24 hr 01/19/24 05:24 RPR Non-reactive Blood Type B Positive Antibody Screen Negative OB - PN A/P Plan day: 1 Plan: routine care Comments: desires circ and home Time Spent With Patient Time: Total time spent is greater than 50% in coordination of care (as documented) at patient's floor/unit and/or counseling patient: Time with patient: less than 15 minutes Exam Const: General: cooperative, healthy appearing and comfortable Orientation/consciousness: oriented to person, oriented to place and oriented to time Resp: Effort & Inspection: normal respiratory effort Cardio: Rate: regular rate Rhythm: regular rhythm Heart sounds: S1 normal heart sound present and S2 normal heart sound present GI: Inspection: normal to inspection
[2024-01-20 08:10] VITALS: BP 120/79; PULSE 68; RESP 18; TEMP 36.8; O2SAT 100
[2024-01-20] MEDS: MULTIVIT/MIN/PREN/FOL AC/IRON TABLET 1 TAB PO (09:56)
--- NOTE | 2024-01-20 11:09 | PC.NURSE ---
[id number]. Introductions were made, then consulted with patient to assess needs related to . Mother led the conversation with her?plans to feed?her and the?experience so far. Encouraged understanding of the benefits of skin to skin, stimulating with massage touch, changing positions to encourage wakefulness, how to watch for early feeding cues, responsive feeding, feeding on demand (aiming for 8-12 times in 24 hours, about every 2-3 hours), milk production, building/maintaining a milk supply, duration of feeding, signs of adequate intake/output and how to record on the feeding sheet. Mother works well with her with encouragement and education. Discussed proper positioning and ear, shoulder, hip alignment, supporting the breast to facilitate a deep latch, asymmetrical latch (off-center), leading with the chin with a big, open, wide gape and body close to mother. Mother verbalized infant latching well with no pain for 10 minutes already this morning and no concerns at present. She also indicated she nursed her 1st baby for 18 months. Mother indicated needing a pump and RN offered to give her one from the hospital. Mother chose the [employer] pump, RN faxed paperwork to [facility]. Mother's nipples measuring 18mm, mother encouraged to use the 24mm flange on the pump. RN offered to show her how to set up the pump and use it when she is ready at some point today, mom verbalized understand and will call. Mother voiced understanding of skin to skin, stimulating with massage touch, responsive feedings, hand expressed colostrum, talking to infant to encourage if it has been 1 hours since the start of the last , to call if does not latch, or if there is discomfort with . Resources used for education were facilitated with the [visual educational handouts. Inpatient resources provided with name written on the communication board, and the mom/baby guide. Parents voiced understanding of information, demonstrated learning and will call if there is a request for assistance. Reported to the Primary RN.
[2024-01-20 11:14] LABS: Hematocrit 32.6 % (37.0-47.0)
--- NOTE | 2024-01-20 12:16 | WPDANLDPN2 ---
Anes-Prog Note L&D Date/Time: 01/20/24 12:16 Comfortable throughout: labor and delivery Neuraxial method: epidural Epidural/Spinal procedure site: clean & non-tender Neuro status: Neuro function grossly intact. Cardiovascular status: normal Respiratory status: normal Airway patency: baseline Mental status: baseline Post-Op hydration status: normal Vital Signs: Last Vital Signs Temp 36.8 C 01/20/24 08:10 Pulse 68 01/20/24 08:10 Resp 18 01/20/24 08:10 BP 120/79 01/20/24 08:10 Pulse Ox 100 01/20/24 08:10 O2 Del Method Room Air 01/19/24 15:40 Pain score (VAS): 3/10 I/O: Intake & Output 01/19/24 01/20/24 01/20/24 23:59 07:59 15:59 Intake Total 500 500 Balance 500 500 Post-procedural complaints: none Patient feedback: Patient satisfied with anesthetic care.
[2024-01-20 12:38] VITALS: BP 130/92; PULSE 72; RESP 18; TEMP 36.3; O2SAT 99
[2024-01-23 11:22] VITALS: BP 136/77; PULSE 78; RESP 18; TEMP 36.9; O2SAT 100
== END 2024-01-20 13:50 | disposition home or self-care (01) | DRG 807 ==
LOC: ANHLDR 09:40 → ANHOB2 11:56
PROVIDERS: Admitting Provider Obstetrics & Gynecology; Visit Provider Obstetrics & Gynecology
DX: O99.214 Obesity complicating childbirth (principal); Z37.0 Single live birth; E66.01 Morbid (severe) obesity due to excess calories; O69.81X0 Labor and delivery complicated by cord around neck, without compression, not applicable or unspecified; Z3A.41 41 weeks gestation of pregnancy
CPT/HCPCS: 36415; 85014; 85018; 85025; 85055; 86592; 86703; 86850; 86900; 86901; A9270; G0432; J2590; J2795; J7120